=== PATIENT | female | born 1955 | race Caucasian/White ===

== ENCOUNTER 2018-07-17 08:08 | Emergency (ER) | payer OTHER ==
[~2018-07-17] VITALS: Ht 160 cm; Wt 57.0 kg
[2018-07-17] MEDS ORDERED: ONDANSETRON HCL 4MG/2ML INJ IV STA (09:18)
[2018-07-17] MEDS ORDERED: SODIUM CHLORIDE 0.9% 1,000 ML IV ONE (09:18)
[2018-07-17] MEDS ORDERED: KETOROLAC 30MG/ML VIAL IV STA (09:18)
[2018-07-17 09:42] LABS: BASOPHILS % 0.5 % (0.0-2.0); HEMATOCRIT. 44.4 % (36.0-48.0); HEMOGLOBIN. 14.8 g/dL (12.0-16.0); LYMPHOCYTES % 8.2 % (20.0-50.0); MEAN CORPUSCULAR HEMOGLOBIN 32.8 pg (28.0-32.0); MEAN CORPUSCULAR VOLUME 98.5 fL (81.0-99.0); MEAN PLATELET VOLUME 9.7 fl (7.4-10.4); MONOCYTES % 6.5 % (2.0-8.0); NEUTROPHILS % 84.8 % (40.0-76.0); PLATELET 170 x1000/uL (130-400); RED BLOOD CELL COUNT 4.51 mill/uL (4.2-5.4); RED CELL DISTRIBUTION WIDTH 12.9 % (11.6-14.6)
[2018-07-17 09:45] LABS: CHLORIDE 107 mEq/L (98-107)
[2018-07-17 09:53] LABS: INR 1.1; PROTHROMBIN TIME 10.9 sec (9.1-11.1)
[2018-07-17 10:01] LABS: CLARITY URINE CLOUDY (CLEAR); COLOR URINE YELLOW (YELLOW); KETONES URINE 4+ (NEGATIVE); LEUKOCYTE ESTERASE URINE 1+ (NEGATIVE); NITRITE URINE NEGATIVE (NEGATIVE); OCCULT BLOOD URINE NEGATIVE (NEGATIVE); PH URINE 8.5 (4.5-8.0); PROTEIN URINE TRACE (NEGATIVE); SPECIFIC GRAVITY URINE 1.027 (1.005-1.030)
[2018-07-17] MEDS ORDERED: MORPHINE SULFATE 4 MG/ML CPJ (NOT FOR IM USE) IV ONE (10:15)
[2018-07-17] MEDS ORDERED: CEFTRIAXONE 1 G PREMIX 50 ML IV ONE (10:45)
[2018-07-17] MEDS ORDERED: MAGNESIUM/ALUMINUM HYDROXIDE/SIMETHICONE 30ML UDC PO STA (13:11)
[2018-07-17] MEDS ORDERED: VISCOUS LIDOCAINE 2% 15 ML UDC PO STA (13:11)
[2018-07-17] MEDS ORDERED: DICYCLOMINE 10 MG/5 ML ORAL SYR PO STA (13:11)
[2018-07-17] MEDS ORDERED: METOCLOPRAMIDE HCL 10MG/2ML VIAL IV ONE (13:15)
[2018-07-17] MEDS ORDERED: SODIUM CHLORIDE 0.9% 1,000 ML IV SCH (13:17)
[2018-07-17] MEDS ORDERED: IPRATROPIUM/ALBUTEROL 0.5-3(2.5)MG/3ML NEB INH PRN (13:30)
[2018-07-17] MEDS ORDERED: DIPHENHYDRAMINE 50MG/ML VIAL IV PRN (13:30)
[2018-07-17] MEDS ORDERED: ACETAMINOPHEN 325MG TABLET PO PRN (13:30)
[2018-07-17] MEDS ORDERED: ONDANSETRON HCL 4MG/2ML INJ IV PRN (13:30)
[2018-07-17] MEDS ORDERED: GUAIFENESIN 200MG/10ML SUGAR FREE UDC PO PRN (13:30)
[2018-07-17] MEDS ORDERED: CLONIDINE 0.1MG TABLET PO PRN (13:30)
[2018-07-17] MEDS ORDERED: MORPHINE SULFATE 4 MG/ML CPJ (NOT FOR IM USE) IV PRN (13:30)
[2018-07-17 14:12] LABS: PHOSPHORUS 1.4 mg/dL (2.5-4.9)
[2018-07-17 14:33] LABS: HEPATITIS B SURFACE ANTIGEN NEGATIVE
[2018-07-17 15:03] LABS: HEPATITIS A AB IGM NEGATIVE (NEGATIVE)
[2018-07-17 15:35] LABS: CREATINE KINASE 66 IU/L (26-192)
[2018-07-17 15:36] LABS: CREATINE KINASE MB FRACTION < 1.0 ng/mL (0.5-3.6)
[2018-07-17 20:15] VITALS: BP 116/66
[2018-07-18] MEDS ORDERED: FLUCONAZOLE 100MG TABLET PO SCH (09:00)
[2018-07-18] MEDS ORDERED: CEFTRIAXONE 1 G PREMIX 50 ML IV SCH ×3 (09:00→09:15)
[2018-07-19] MEDS ORDERED: ENOXAPARIN 40MG/0.4ML SYR SUBCUT SCH (08:00)
== END 2018-07-17 20:27 | disposition short-term general hospital (02) ==
LOC: ER 08:08 → EDBEDREQSVC 14:04 → EDBEDREQ 14:04 → EDBEDREQTM 14:04 → CANBEDREQ 17:51 → ER 20:27
DX: R11.2 Nausea with vomiting, unspecified (principal)
CPT/HCPCS: 36415; 71045; 74176; 80053; 81003; 82550; 82553; 83036; 83690; 83735; 84100; 85025; 85610; 93005; 93970; 96361; 96365; 96366; 96375; 99285; J0696; J1885; J2270; J2405; J7030; 86705; 86709; 86803; 87340